=== PATIENT | female | born 1980 | race Two or more races ===

== ENCOUNTER 2018-04-02 15:57 | Inpatient (IN) | payer MEDICARE, MEDICAID ==
[~2018-04-02] VITALS: Ht 162.6 cm; Wt 92.4 kg
[~2018-04-02 15:57] MED LIST: ATO40T PO; BACL20TA PO; CANA300T PO; CEPH250C PO; DICY20TA38 PO; ERGO1CAP23 PO; FAM20T PO; FLUO20CA19 PO; GABA300C10 PO; GLIM2TAB33 PO; HYDR-4683 PO; HYDR20TA2 PO; IBUP800T24 PO; INSUINJ37 SUBCUT; INSUINJ49 SC; LIS10T PO; METF-489 PO; NOVOLOG SC; ONDA4TAB5 PO; PROM25TA5 PO; Pantoprazole Sodium PO; SUCR1TAB36 PO
[2018-04-02] MEDS ORDERED: LORazepam 0.5 MG TAB PO ONE (16:45)
[2018-04-02 16:47] LABS: Basophils # (auto) 0.1 uL; Basophils % (auto) 0.6 % (0.0-2.0); Eosinophils # (auto) 0.1 uL; Eosinophils % (auto) 1.6 % (0.0-7.0); Hematocrit 45.1 % (36.0-46.0); Hemoglobin 15.1 g/dL (12.2-16.2); Lymphocytes # (auto) 2.6 uL; Mean Corpuscular Hemoglobin 29.7 pg (28.0-32.0); Mean Corpuscular Hgb Conc. 33.5 g/dL (32.0-36.0); Mean Corpuscular Volume 88.6 fL (80.0-100.0); Monocytes # (auto) 0.6 uL; Monocytes % (auto) 7.5 % (0.0-12.0); Neutrophils # (auto) 4.8 uL; Neutrophils % (auto) 58.3 % (37.0-80.0); Nucleated Red Blood Cells % 0.1 %; Platelet Count (auto) 354 10^3/uL (140-450); Red Blood Cells 5.09 10^6/uL (4.0-5.20); Red Cell Distribution Width 13.1 % (11.8-14.3); White Blood Cell 8.2 10^3/uL (4.4-10.8)
[2018-04-02 17:03] LABS: Blood Urea Nitrogen 12 mg/dL (7-18); Calcium 8.8 mg/dL (8.5-10.1); Chloride 101 mmol/L (98-107); Potassium 3.6 mmol/L (3.5-5.1); Sodium 138 mmol/L (136-145)
[2018-04-02 17:07] LABS: Alanine Aminotransferase 21 U/L (13-56); Albumin 3.4 g/dL (3.4-5.0); Anion Gap 12 (5-15); Aspartate Aminotransferase 12 U/L (15-37); BUN/Creatinine Ratio 18.2; Carbon Dioxide 25 mmol/L (21-32); GFR African American 130 mL/min; GFR Non-African American 107 mL/min; Glucose 251 mg/dL (74-106)
[2018-04-02 17:12] LABS: Urine Bacteria NONE SEEN /hpf (None Seen); Urine Blood Negative /uL (Negative); Urine Specific Gravity 1.038 (1.001-1.035); Urine WBC <1 /hpf (0 - 5)
[2018-04-02 17:19] LABS: Alkaline Phosphatase 102 U/L (45-117); Bilirubin, Total 0.3 mg/dL (0.2-1.0); Total Protein 7.3 g/dL (6.4-8.2)
[2018-04-02] MEDS ORDERED: SODIUM CHLORIDE 0.9% 1,000 ML IV SCH (17:42)
[2018-04-02] MEDS ORDERED: ACETAMINOPHEN 500 MG TAB PO PRN (17:45)
[2018-04-02] MEDS ORDERED: NITROGLYCERIN 0.4 MG SL TAB SL PRN (17:45)
[2018-04-02] MEDS ORDERED: MORPHINE SULFATE 8mg/ml INJ SDV IV PRN (17:45)
[2018-04-02] MEDS ORDERED: LABETALOL HCL 5 MG/ML ML 20ML VIAL IV PRN (17:45)
[2018-04-02] MEDS ORDERED: TEMAZEPAM 15 MG CAP PO PRN (17:45)
[2018-04-02] MEDS ORDERED: LORazepam 0.5 MG TAB PO PRN (17:45)
[2018-04-02] MEDS ORDERED: DEXTROSE (50%) 50ML SYRG IV PRN (17:45)
[2018-04-02 18:26] LABS: Folate (Folic Acid) 15.37 ng/mL (5.38-24)
[2018-04-02] MEDS ORDERED: PROMETHAZINE HCL 25 MG/ML 1ML IV PRN (18:45)
[2018-04-02] MEDS ORDERED: PROMETHAZINE HCL 25 MG/ML 1ML ONE (18:47)
[2018-04-02] MEDS: ENOXAPARIN SOD 40 MG/0.4 ML SYRINGE SC SCH (18:59)
[2018-04-02] MEDS: PROMETHAZINE HCL 25 MG/ML 1ML IV PRN (18:59)
[2018-04-02] MEDS: SUCRALFATE 1 GM TAB PO SCH ×2 (18:59→22:00)
[2018-04-02] MEDS: MORPHINE SULFATE 8mg/ml INJ SDV IV PRN ×2 (18:59→23:17)
[2018-04-02] MEDS ORDERED: methylPREDNISolone SOD SUCC 40 MG/ML VL IV ONE (19:00)
[2018-04-02] MEDS: SODIUM CHLORIDE 0.9% 1,000 ML IV SCH (19:06)
[2018-04-02] MEDS ORDERED: ASPirin 81 mg TAB PO ONE (19:15)
[2018-04-02 19:34] LABS: Amylase 49 U/L (25-115); Lipase 209 U/L (73-393)
[2018-04-02] MEDS: INSULIN LANTUS (GLARGINE) 1 /0.01ml (100units/ml) SC SCH ×2 (19:41→22:30)
[2018-04-02 20:25] VITALS: BP 105/72
[2018-04-02] MEDS: HYDROcodone-ACET 5/325MG TAB PO PRN (21:10)
[2018-04-02] MEDS: DICYCLOMINE HCL 10 MG CAP PO SCH (21:39)
[2018-04-02] MEDS: ATORVASTATIN 20 MG TAB PO SCH (21:39)
[2018-04-02] MEDS: PANTOPRAZOLE 40 MG TAB PO SCH (21:40)
[2018-04-02] MEDS: GABAPENTIN 300 MG CAP PO SCH (21:40)
[2018-04-02] MEDS: BACLOFEN 10 MG TAB PO SCH (21:41)
[2018-04-02] MEDS: METOPROLOL TARTRATE 25 MG TAB PO SCH (21:51)
[2018-04-02] MEDS ORDERED: FAMOTIDINE 20 MG TAB PO SCH (22:00)
[2018-04-02] MEDS: HYDROCORTISONE 10 MG TAB PO SCH (22:00)
[2018-04-02 22:18] VITALS: BP 105/72
[2018-04-02] MEDS: InsuLIN REG 1unit/0.01ml Soln (100units/ml) SC SCH (22:28)
[2018-04-02] MEDS: ACCU-CHEK COMFORT CURVE STRIP VI SCH (22:30)
[2018-04-03] MEDS: HYDROcodone-ACET 5/325MG TAB PO PRN ×3 (03:14→21:36)
[2018-04-03 04:00] VITALS: BP 99/61
[2018-04-03] MEDS: MORPHINE SULFATE 8mg/ml INJ SDV IV PRN ×2 (04:37→14:44)
[2018-04-03] MEDS: SODIUM CHLORIDE 0.9% 1,000 ML IV SCH ×2 (04:58→15:06)
[2018-04-03] MEDS: SUCRALFATE 1 GM TAB PO SCH ×4 (05:54→21:37)
[2018-04-03] MEDS: DICYCLOMINE HCL 10 MG CAP PO SCH ×4 (05:54→21:37)
[2018-04-03] MEDS: HYDROCORTISONE 10 MG TAB PO SCH (05:54)
[2018-04-03] MEDS: GABAPENTIN 300 MG CAP PO SCH ×3 (05:54→21:37)
[2018-04-03] MEDS: InsuLIN REG 1unit/0.01ml Soln (100units/ml) SC SCH ×4 (06:04→22:00)
[2018-04-03] MEDS: ACCU-CHEK COMFORT CURVE STRIP VI SCH ×4 (06:05→22:02)
[2018-04-03] MEDS: Canagliflozin (Invokana) 300 MG TABLET PO SCH (06:08)
[2018-04-03 06:27] LABS: Basophils # (auto) 0 uL; Basophils % (auto) 0.5 % (0.0-2.0); Eosinophils # (auto) 0.2 uL; Eosinophils % (auto) 1.7 % (0.0-7.0); Hematocrit 43.8 % (36.0-46.0); Lymphocytes # (auto) 2.7 uL; Lymphocytes % (auto) 31.3 % (10.0-50.0); Mean Corpuscular Hemoglobin 30.4 pg (28.0-32.0); Mean Corpuscular Hgb Conc. 34.1 g/dL (32.0-36.0); Mean Corpuscular Volume 89.2 fL (80.0-100.0); Monocytes # (auto) 0.6 uL; Monocytes % (auto) 7.3 % (0.0-12.0); Neutrophils # (auto) 5.1 uL; Neutrophils % (auto) 59.2 % (37.0-80.0); Nucleated Red Blood Cells % 0.1 %; Platelet Count (auto) 354 10^3/uL (140-450); Red Blood Cells 4.91 10^6/uL (4.0-5.20); Red Cell Distribution Width 13.1 % (11.8-14.3); White Blood Cell 8.7 10^3/uL (4.4-10.8)
[2018-04-03 06:38] LABS: Cholesterol 289 mg/dL (< 200); HDL Cholesterol 35 mg/dL (40-59); Triglycerides 583 mg/dL (< 150)
[2018-04-03] MEDS: INSULIN 70/30 1unit/0.01ml Susp (100units/ml) SC SCH (07:00)
[2018-04-03] MEDS ORDERED: GLIMEPIRIDE 2 MG TAB PO SCH (08:00)
[2018-04-03 09:00] VITALS: BP 90/60
[2018-04-03] MEDS: PANTOPRAZOLE 40 MG TAB PO SCH ×2 (09:59→21:36)
[2018-04-03] MEDS: ENOXAPARIN SOD 40 MG/0.4 ML SYRINGE SC SCH (09:59)
[2018-04-03] MEDS: FLUoxetine HCL 20 MG CAP PO SCH (09:59)
[2018-04-03] MEDS: ASPirin 81 mg TAB PO SCH (10:00)
[2018-04-03] MEDS: PROMETHAZINE HCL 25 MG/ML 1ML IV PRN ×2 (10:00→17:12)
[2018-04-03] MEDS: METOPROLOL TARTRATE 25 MG TAB PO SCH (10:00)
[2018-04-03] MEDS ORDERED: LISINOPRIL 10 MG TAB PO SCH (10:00)
[2018-04-03] MEDS: NITROGLYCERIN 0.2MG/HR TOPICAL PATCH TD SCH (10:00)
[2018-04-03] MEDS ORDERED: HYDROCORTISONE PO SCH (10:00)
[2018-04-03 13:00] VITALS: BP 99/63
[2018-04-03 17:00] VITALS: BP 86/55
[2018-04-03] MEDS: ATORVASTATIN 20 MG TAB PO SCH (21:37)
[2018-04-03] MEDS: BACLOFEN 10 MG TAB PO SCH (21:37)
[2018-04-03 22:00] VITALS: BP 78/53
[2018-04-03] MEDS: INSULIN LANTUS (GLARGINE) 1 /0.01ml (100units/ml) SC SCH (22:00)
[2018-04-04] VITALS (7 sets, daily range): BP systolic 90–105; BP diastolic 52–69
[2018-04-04] MEDS: PROMETHAZINE HCL 25 MG/ML 1ML IV PRN ×5 (00:11→21:46)
[2018-04-04] MEDS: SODIUM CHLORIDE 0.9% 1,000 ML IV SCH ×2 (00:58→14:48)
[2018-04-04] MEDS: SUCRALFATE 1 GM TAB PO SCH ×4 (05:56→21:46)
[2018-04-04] MEDS: DICYCLOMINE HCL 10 MG CAP PO SCH ×4 (05:56→21:46)
[2018-04-04] MEDS: GABAPENTIN 300 MG CAP PO SCH ×3 (05:56→21:45)
[2018-04-04] MEDS: HYDROcodone-ACET 5/325MG TAB PO PRN ×4 (05:57→21:46)
[2018-04-04] MEDS: ACCU-CHEK COMFORT CURVE STRIP VI SCH ×4 (06:36→21:47)
[2018-04-04] MEDS: INSULIN 70/30 1unit/0.01ml Susp (100units/ml) SC SCH (06:40)
[2018-04-04] MEDS: InsuLIN REG 1unit/0.01ml Soln (100units/ml) SC SCH ×4 (06:41→21:47)
[2018-04-04] MEDS: Canagliflozin (Invokana) 300 MG TABLET PO SCH (06:41)
[2018-04-04] MEDS: ENOXAPARIN SOD 40 MG/0.4 ML SYRINGE SC SCH (08:35)
[2018-04-04] MEDS: FLUoxetine HCL 20 MG CAP PO SCH (08:36)
[2018-04-04] MEDS: PANTOPRAZOLE 40 MG TAB PO SCH ×2 (08:36→21:45)
[2018-04-04] MEDS: ASPirin 81 mg TAB PO SCH (08:36)
[2018-04-04] MEDS: HYDROCORTISONE 10 MG TAB PO SCH (08:37)
[2018-04-04] MEDS: NITROGLYCERIN 0.2MG/HR TOPICAL PATCH TD SCH (08:37)
[2018-04-04] MEDS: ATORVASTATIN 20 MG TAB PO SCH (21:45)
[2018-04-04] MEDS: BACLOFEN 10 MG TAB PO SCH (21:45)
[2018-04-04] MEDS: INSULIN LANTUS (GLARGINE) 1 /0.01ml (100units/ml) SC SCH (21:47)
[2018-04-05] MEDS: PROMETHAZINE HCL 25 MG/ML 1ML IV PRN ×3 (01:47→12:39)
[2018-04-05 05:00] VITALS: BP 100/68
[2018-04-05 05:04] VITALS: BP 103/72
[2018-04-05 05:08] VITALS: BP 102/65
[2018-04-05] MEDS: GABAPENTIN 300 MG CAP PO SCH (05:46)
[2018-04-05] MEDS: SUCRALFATE 1 GM TAB PO SCH (05:46)
[2018-04-05] MEDS: DICYCLOMINE HCL 10 MG CAP PO SCH (05:46)
[2018-04-05] MEDS: HYDROcodone-ACET 5/325MG TAB PO PRN (06:29)
[2018-04-05] MEDS: InsuLIN REG 1unit/0.01ml Soln (100units/ml) SC SCH (06:32)
[2018-04-05] MEDS: ACCU-CHEK COMFORT CURVE STRIP VI SCH (06:32)
[2018-04-05] MEDS: Canagliflozin (Invokana) 300 MG TABLET PO SCH (06:39)
[2018-04-05] MEDS: INSULIN 70/30 1unit/0.01ml Susp (100units/ml) SC SCH (06:39)
[2018-04-05 09:00] VITALS: BP 98/56
[2018-04-05] MEDS: ENOXAPARIN SOD 40 MG/0.4 ML SYRINGE SC SCH (10:00)
[2018-04-05] MEDS: SODIUM CHLORIDE 0.9% 1,000 ML IV SCH ×2 (10:32)
[2018-04-05] MEDS: FLUoxetine HCL 20 MG CAP PO SCH (10:33)
[2018-04-05] MEDS: ASPirin 81 mg TAB PO SCH (10:33)
[2018-04-05] MEDS: HYDROCORTISONE 10 MG TAB PO SCH (10:33)
[2018-04-05] MEDS: PANTOPRAZOLE 40 MG TAB PO SCH (10:33)
[2018-04-05 14:26] VITALS: BP 99/52
== END 2018-04-05 15:45 | disposition home or self-care (01) | DRG 638 ==
LOC: EDBD 15:57 → ER 16:00 → TELE 16:01 → TELE-WESTW 20:25
PROVIDERS: ADMIT Internal Medicine; ATTEND Internal Medicine
DX: E11.65 Type 2 diabetes mellitus with hyperglycemia (principal); E27.1 Primary adrenocortical insufficiency; E11.40 Type 2 diabetes mellitus with diabetic neuropathy, unspecified; I95.9 Hypotension, unspecified; R55 Syncope and collapse; E78.00 Pure hypercholesterolemia, unspecified; E66.9 Obesity, unspecified; G43.909 Migraine, unspecified, not intractable, without status migrainosus; R07.9 Chest pain, unspecified; R10.9 Unspecified abdominal pain; F32.9 Major depressive disorder, single episode, unspecified; F41.9 Anxiety disorder, unspecified; I10 Essential (primary) hypertension; K58.9 Irritable bowel syndrome, unspecified; Z82.3 Family history of stroke; Z82.49 Family history of ischemic heart disease and other diseases of the circulatory system; Z83.3 Family history of diabetes mellitus; Z90.710 Acquired absence of both cervix and uterus; Z79.899 Other long term (current) drug therapy; Z79.4 Long term (current) use of insulin; Z79.82 Long term (current) use of aspirin; Z90.49 Acquired absence of other specified parts of digestive tract; Z88.8 Allergy status to other drugs, medicaments and biological substances; Z83.511 Family history of glaucoma; Z84.89 Family history of other specified conditions; Z68.35 Body mass index [BMI] 35.0-35.9, adult
CPT/HCPCS: 36415; 70450; 71045; 74176; 80053; 80061; 81001; 82150; 82533; 82550; 82607; 82746; 82962; 83036; 83690; 83880; 84443; 84484; 85025; 85379; 85652; 86141; 93005; 93306; 93886; 96361; 96372; 96374; J1815; J2270

== ENCOUNTER 2019-01-26 20:08 | Emergency (ER) | payer MEDICARE, MEDICAID ==
[~2019-01-26] VITALS: Ht 167.6 cm; Wt 113.4 kg
[2019-01-26 20:56] LABS: Basophils # (auto) 0.1 uL; Basophils % (auto) 0.6 % (0.0-2.0); Eosinophils # (auto) 0.1 uL; Eosinophils % (auto) 1.2 % (0.0-7.0); Hematocrit 46.6 % (36.0-46.0); Hemoglobin 15.2 g/dL (12.2-16.2); Lymphocytes % (auto) 34.1 % (10.0-50.0); Mean Corpuscular Hemoglobin 29.3 pg (28.0-32.0); Mean Corpuscular Hgb Conc. 32.6 g/dL (32.0-36.0); Mean Corpuscular Volume 89.7 fL (80.0-100.0); Monocytes # (auto) 0.5 uL; Monocytes % (auto) 5.9 % (0.0-12.0); Neutrophils # (auto) 5.1 uL; Neutrophils % (auto) 58.2 % (37.0-80.0); Platelet Count (auto) 310 10^3/uL (140-450); Red Blood Cells 5.19 10^6/uL (4.0-5.20); Red Cell Distribution Width 13.5 % (11.8-14.3); White Blood Cell 8.8 10^3/uL (4.4-10.8)
[2019-01-26 21:13] LABS: Albumin 3.6 g/dL (3.4-5.0); Calcium 8.8 mg/dL (8.5-10.1); Potassium 4.7 mmol/L (3.5-5.1)
[2019-01-26 21:15] LABS: Bilirubin, Total 0.2 mg/dL (0.2-1.0); Total Protein 7.8 g/dL (6.4-8.2)
[2019-01-26] MEDS ORDERED: SODIUM CHLORIDE 0.9% 1,000 ML IV ONE (23:30)
[2019-01-27 00:10] LABS: Urine Bacteria FEW /hpf (None Seen); Urine Blood Negative /uL (Negative); Urine Specific Gravity 1.035 (1.001-1.035); Urine WBC <1 /hpf (0 - 5)
[2019-01-27] MEDS ORDERED: HYDROcodone-ACET 5/325MG TAB PO ONE (00:30)
[2019-01-27 01:34] VITALS: BP 111/58
== END 2019-01-27 01:29 | disposition home or self-care (01) ==
LOC: EDBD 20:08 → ER 20:26
DX: R55 Syncope and collapse (principal); R51 Headache; E11.65 Type 2 diabetes mellitus with hyperglycemia; Z90.49 Acquired absence of other specified parts of digestive tract; Z90.710 Acquired absence of both cervix and uterus; Z88.6 Allergy status to analgesic agent; Z79.4 Long term (current) use of insulin; Z79.899 Other long term (current) drug therapy
CPT/HCPCS: 36415; 70450; 80053; 81001; 82962; 85025; 93005; 96360; 99284; J7030